=== PATIENT | female | born 1990 | race Caucasian/White ===

== ENCOUNTER 2020-06-09 23:47 | Emergency (ER) | payer SELFPAY ==
[~2020-06-09] VITALS: Ht 167.6 cm; Wt 68.0 kg
[2020-06-10] MEDS ORDERED: KETOROLAC TROMETHAMINE 60 MG/2 ML VIAL IM ONE (00:15)
[2020-06-10] MEDS ORDERED: KETOROLAC TROMETHAMINE 60 MG/2 ML VIAL ONE (00:35)
[2020-06-10] MEDS ORDERED: FAMOTIDINE 20 MG/2 ML VIAL IV STA (00:54)
[2020-06-10] MEDS ORDERED: SODIUM CHLORIDE 0.9% 1000ML 1,000 ML IV STA (00:55)
[2020-06-10] MEDS ORDERED: FAMOTIDINE 20 MG/2 ML VIAL IV ONE (01:29)
[2020-06-10] MEDS ORDERED: SODIUM CHLORIDE 0.9% 1000ML 1,000 ML ONE (01:29)
== END 2020-06-10 02:35 | disposition home or self-care (01) ==
LOC: FSED 06-10 00:06
DX: R07.9 Chest pain, unspecified (principal); R06.02 Shortness of breath; R11.2 Nausea with vomiting, unspecified; F41.9 Anxiety disorder, unspecified
CPT/HCPCS: 71046; 80053; 82553; 84484; 85025; 93005; 99283; J1885; J7030